=== PATIENT | female | born 1955 | race Caucasian/White ===

== ENCOUNTER 2023-07-13 17:34 | Emergency (ER) | payer MEDICARE ==
[~2023-07-13 17:34] MED LIST: Iopamidol 370 76% 100 ML VIAL ONE
[2023-07-13 18:27] LABS: PTT 37.6 sec (22.0-33.0); Prothrombin Time 11.1 sec (9.5-12.1)
[2023-07-13 18:29] LABS: #Monocytes 1.4 10x3/uL (0.0-1.1); #Neutrophils 12.2 10x3/uL (1.5-8.4); %Basophils 0.2 % (0.0-2.0); %Eosinophils 0.1 % (0.0-6.0); %Lymphocytes 14.2 % (18.0-47.0); %Monocytes 8.8 % (0.0-10.0); %Neutrophils 76.1 % (40.0-75.0); Hematocrit 25.8 % (34.9-44.5); Hemoglobin 8.4 g/dL (12.0-15.5); Mean Corpuscular HGB CONC 32.6 g/dL (32.0-36.0); Mean Corpuscular Hemoglobin 29.6 pg (27.0-33.0); Mean Corpuscular Volume 90.8 fl (81.6-98.3); Mean Platelet Volume 11.7 fl (7.4-10.4); Platelet Count 283 10x3/uL (150-450); RBC Distribution Width 14.6 % (11.5-14.5); Red Blood Cell (RBC) Count 2.84 10x6/uL (3.90-5.03)
[2023-07-13 18:33] LABS: Troponin I 0.064 ng/mL (< 0.028)
[2023-07-13 18:33] LABS: ALT (SGPT) 32 U/L (8-55); AST (SGOT) 51 U/L (5-34); Albumin 2.1 g/dL (3.4-4.8); Alkaline Phosphatase 116 U/L (40-110); Anion Gap 13 mmol/L (10-20); BUN (Urea Nitrogen) 32 mg/dL (9.8-20.1); Bilirubin, Total 0.4 mg/dL (0.2-1.2); Calc. Creatinine Clearance 0 mL/min (70-130); Carbon Dioxide 19 mmol/L (23-31); Chloride 110 mmol/L (98-107); Estimated GFR 35; Globulin 2.1 g/dL (2.4-3.5); Glucose 88 mg/dL (80-115); Protein, Total 4.2 g/dL (5.8-8.1); Sodium 138 mmol/L (136-145)
[2023-07-13 18:36] LABS: Calcium 6.4 mg/dL (7.8-10.44)
[2023-07-13] MEDS ORDERED: Vancomycin 1 GM VIAL ONE (19:01)
[2023-07-13] MEDS ORDERED: Cefepime 2 GM VIAL ONE (19:02)
[2023-07-13] MEDS ORDERED: VANCOMYCIN 2 GRAM/400 ML BAG 2 GM in Premix Bag 1 BAG IVPB SCH (19:15)
[2023-07-13] MEDS ORDERED: fentaNYL 50 mcg/mL 1 mL Vial ONE (23:45)
== END 2023-07-14 00:11 | disposition short-term general hospital (02) ==
LOC: CSHERS 17:34
DX: J96.01 Acute respiratory failure with hypoxia (principal); J18.9 Pneumonia, unspecified organism; K66.1 Hemoperitoneum; A41.9 Sepsis, unspecified organism; I10 Essential (primary) hypertension; E78.00 Pure hypercholesterolemia, unspecified; Z87.891 Personal history of nicotine dependence
CPT/HCPCS: 36415; 71045; 71275; 74174; 74176; 80053; 83605; 84484; 85025; 85610; 85730; 86850; 86900; 86901; 87040; 93005; J0692; J3010; J3370

== ENCOUNTER 2023-09-13 12:53 | Outpatient (CLI) | payer MEDICARE | END 2023-09-13 12:54 | disposition home or self-care (01) | LOC: CSHWCC 12:53 | PROVIDERS: ATTEND Physician Assistant | DX: T81.32XD Disruption of internal operation (surgical) wound, not elsewhere classified, subsequent encounter (principal); I73.9 Peripheral vascular disease, unspecified | CPT/HCPCS: 97605; G0463; 99213 ==

== ENCOUNTER 2023-09-16 14:50 | Outpatient (CLI) | payer MEDICARE | END 2023-09-16 14:51 | disposition home or self-care (01) | LOC: CSHWCC 14:50 | PROVIDERS: ATTEND Physician Assistant | DX: I73.9 Peripheral vascular disease, unspecified (principal); T81.32XD Disruption of internal operation (surgical) wound, not elsewhere classified, subsequent encounter | CPT/HCPCS: 97602 ==

== ENCOUNTER 2023-09-26 13:19 | Outpatient (CLI) | payer MEDICARE | END 2023-09-26 13:20 | disposition home or self-care (01) | LOC: CSHWCC 13:19 | PROVIDERS: ATTEND Physician Assistant | DX: T81.32XD Disruption of internal operation (surgical) wound, not elsewhere classified, subsequent encounter (principal); I73.9 Peripheral vascular disease, unspecified | CPT/HCPCS: 97605 ==

== ENCOUNTER 2023-09-30 08:08 | Outpatient (CLI) | payer MEDICARE | END 2023-09-30 08:09 | disposition home or self-care (01) | LOC: CSHWCC 08:08 | PROVIDERS: ATTEND Physician Assistant | DX: T81.32XD Disruption of internal operation (surgical) wound, not elsewhere classified, subsequent encounter (principal); I73.9 Peripheral vascular disease, unspecified | CPT/HCPCS: 97605 ==

== ENCOUNTER 2023-10-03 09:57 | Outpatient (CLI) | payer MEDICARE | END 2023-10-03 09:58 | disposition home or self-care (01) | LOC: CSHWCC 09:57 | PROVIDERS: ATTEND Physician Assistant | DX: T81.32XA Disruption of internal operation (surgical) wound, not elsewhere classified, initial encounter (principal); I73.9 Peripheral vascular disease, unspecified | CPT/HCPCS: 97605 ==

== ENCOUNTER 2023-10-05 10:16 | Outpatient (CLI) | payer MEDICARE | END 2023-10-05 10:17 | disposition home or self-care (01) | LOC: CSHWCC 10:16 | PROVIDERS: ATTEND Physician Assistant | DX: T81.32XD Disruption of internal operation (surgical) wound, not elsewhere classified, subsequent encounter (principal); I73.9 Peripheral vascular disease, unspecified | CPT/HCPCS: 97605 ==

== ENCOUNTER 2023-10-11 09:53 | Outpatient (CLI) | payer MEDICARE | END 2023-10-11 09:54 | disposition home or self-care (01) | LOC: CSHWCC 09:53 | PROVIDERS: ATTEND Preventive Medicine Undersea and Hyperbaric Medicine | DX: T81.32XD Disruption of internal operation (surgical) wound, not elsewhere classified, subsequent encounter (principal); I73.9 Peripheral vascular disease, unspecified | CPT/HCPCS: 97605 ==

== ENCOUNTER 2023-10-18 09:44 | Outpatient (CLI) | payer MEDICARE | END 2023-10-18 09:45 | disposition home or self-care (01) | LOC: CSHWCC 09:44 | PROVIDERS: ATTEND Physician Assistant | DX: T81.32XD Disruption of internal operation (surgical) wound, not elsewhere classified, subsequent encounter (principal); I73.9 Peripheral vascular disease, unspecified | CPT/HCPCS: 97605 ==

== ENCOUNTER 2023-10-25 10:25 | Outpatient (CLI) | payer MEDICARE | END 2023-10-25 10:26 | disposition home or self-care (01) | LOC: CSHWCC 10:25 | PROVIDERS: ATTEND Physician Assistant | DX: T81.32XD Disruption of internal operation (surgical) wound, not elsewhere classified, subsequent encounter (principal); I73.9 Peripheral vascular disease, unspecified | CPT/HCPCS: 97605 ==

== ENCOUNTER 2023-11-23 12:57 | Outpatient (CLI) | payer MEDICARE | END 2023-11-23 12:58 | disposition home or self-care (01) | LOC: CSHWCC 12:57 | PROVIDERS: ATTEND Preventive Medicine Undersea and Hyperbaric Medicine | DX: T81.32XA Disruption of internal operation (surgical) wound, not elsewhere classified, initial encounter (principal); I73.9 Peripheral vascular disease, unspecified | CPT/HCPCS: 97607 ==

== ENCOUNTER 2023-11-30 14:09 | Outpatient (CLI) | payer MEDICARE | END 2023-11-30 14:10 | disposition home or self-care (01) | LOC: CSHWCC 14:09 | PROVIDERS: ATTEND Preventive Medicine Undersea and Hyperbaric Medicine | DX: T81.32XD Disruption of internal operation (surgical) wound, not elsewhere classified, subsequent encounter (principal); I73.9 Peripheral vascular disease, unspecified | CPT/HCPCS: 97607 ==

== ENCOUNTER 2023-12-07 13:49 | Outpatient (CLI) | payer MEDICARE | END 2023-12-07 13:50 | disposition home or self-care (01) | LOC: CSHWCC 13:49 | PROVIDERS: ATTEND Physician Assistant | DX: T81.32XD Disruption of internal operation (surgical) wound, not elsewhere classified, subsequent encounter (principal); I73.9 Peripheral vascular disease, unspecified | CPT/HCPCS: 97607 ==

== ENCOUNTER 2023-12-14 15:34 | Outpatient (CLI) | payer MEDICARE | END 2023-12-14 15:35 | disposition home or self-care (01) | LOC: CSHWCC 15:34 | PROVIDERS: ATTEND Physician Assistant | DX: T81.32XD Disruption of internal operation (surgical) wound, not elsewhere classified, subsequent encounter (principal); I73.9 Peripheral vascular disease, unspecified | CPT/HCPCS: 99213; G0463 ==

== ENCOUNTER 2024-01-04 09:23 | Outpatient (CLI) | payer MEDICARE | END 2024-01-04 09:24 | disposition home or self-care (01) | LOC: CSHWCC 09:23 | PROVIDERS: ATTEND Nurse Practitioner Family | DX: T81.32XD Disruption of internal operation (surgical) wound, not elsewhere classified, subsequent encounter (principal); I73.9 Peripheral vascular disease, unspecified | CPT/HCPCS: 99213; G0463 ==